=== PATIENT | female | born 1965 | race Two or more races ===

== ENCOUNTER 2017-04-03 17:15 | Observation (INO) | payer BC ==
--- NOTE | ~2017-04-03 | HP ---
History And Physical [facility] [address] [place]. [address] NAME: MOHSEN KELLY : [birth year] STATUS : ADM Ren PAT#: [id number] AGE: 52 ADM/REG DATE : 04/03/17 MR#: [id number] REPORT SERV DATE: 04/04/17 DICTATED BY: APOLINAR PIZARRO DATE: 04/04/17 REPORT STATUS : Draft TRANSCRIBED BY: MODL DATE: 04/04/17 DATE OF ADMISSION: 04/03/2017 CHIEF COMPLAINT: Abdominal pain, nausea, vomiting, and dark black stools. HISTORY OF PRESENT ILLNESS: This is a 52-year-old female with a history of colon cancer status post resection, hypertension, presents to the emergency room at [facility] with the above-mentioned complaint. History is obtained from the patient, and reviewing data available on the [employer] system. According to available data, Mrs. Kelly was in her usual state of health until yesterday in the evening when she started experiencing pain in her right lower quadrant and left lower quadrant. She says this was more in the right lower quadrant and sharp in nature. It appeared to be colicky as well. She was in quite a bit of discomfort and then she started having loose bowel movements. She says initially it was formed stools then it became very watery. She said the color was quite dark. She thought there was blood in it, but was not sure. She also had one or two episodes of vomiting which she says was just food that she ate and green by bilious material. She hoped the pain would go away, rested at night, but had a very uncomfortable night because of the pain. This morning when the pain continued in her abdomen, she continued to have nausea and vomiting, and she finally decided to come to the emergency room to be evaluated. In the emergency room, initial workup including CT scan of the abdomen and pelvis showed no acute problem, she did however have acute kidney injury and hypokalemia. She also had nausea and vomiting requiring intravenous administration of Phenergan and Zofran. When she initially presented to the emergency room, her blood pressure was 187/102, but subsequently came down to 138/93 and then 131/61. Hospitalist Service is asked to admit her for further evaluation and treatment. At the time of my evaluation, Ms Kelly denied any chest pain or palpitation. She had no orthopnea. She did not complain of any recent cough, hemoptysis, night sweats, or weight loss. She has not had any recent falls or loss of consciousness. She did have some chills, but no temperature. As mentioned above she did have nausea, vomiting, and diarrhea. No other history of recent travel or exposures. PAST MEDICAL HISTORY: Significant for history of colon cancer status post resection by Dr. Hua, and history of hypertension. SOCIAL HISTORY: She does not smoke, drink, or use recreational drugs. 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 FAMILY HISTORY: Noncontributory. MEDICATIONS: Her medications at home were reviewed by me in the chart today and reordered by me. History And Physical [address] [place]. [address] NAME: MOHSEN KELLY : [birth year] STATUS : ADM Ren PAT#: [id number] AGE: 52 ADM/REG DATE : 04/03/17 MR#: [id number] REPORT SERV DATE: 04/04/17 DICTATED BY: APOLINAR PIZARRO DATE: 04/04/17 REPORT STATUS : Draft TRANSCRIBED BY: JALEN DATE: 04/04/17 REVIEW OF SYSTEMS: As in history of present illness. All other systems were reviewed in detail and are quite unremarkable. PHYSICAL EXAMINATION: GENERAL: This is a pleasant 52-year-old, not in any acute distress. HEENT: Her head is atraumatic and normocephalic. She is alert, awake, oriented to time, place, and person. Her pupils are equal, reacting to light and accommodating. External ocular muscles are intact. Membranes are moist and pink. Sclerae are nonicteric. NECK: Supple with no jugular venous distention, lymphadenopathy, or thyromegaly. LUNGS: Clear to auscultation with no wheezes, rubs, or crackles. HEART: Heart sounds were regular with no murmurs, rubs, or gallops. ABDOMEN: Soft, but tender to palpation almost diffusely in all quadrants. There is no rebound tenderness, guarding, or rigidity. EXTREMITIES: No cyanosis, clubbing, or edema. NEUROLOGIC: Grossly intact. No focal sensory or motor deficits. Higher functions appeared intact. Gait was normal. VITAL SIGNS: Her temperature was 98.9, pulse 108, respirations 14 a minute, blood pressure was 138/93, and oxygen saturations were 98% breathing room air. LABORATORY DATA: Reviewed on the [employer] system showed a sodium of 142, potassium 3.1, chloride 104, CO2 of 28, BUN was 17 with a creatinine of 1.43, and glucose was 183. Her alkaline phosphatase was 106. ALT and AST were within normal limits. Lipase was 394. CBC showed a white blood cell count of 10,000. Normal hemoglobin, hematocrit, and platelet count. Urinalysis was not done today. Films of the CT scan of the abdomen and pelvis were reviewed by me on the PACS today and interpreted by me. Per my interpretation and reviewing the Radiology report, there is no acute intraabdominal or pelvic pathology. There is prior right colectomy seen. A 12-lead EKG done in the emergency room was reviewed and interpreted by me. There is normal sinus rhythm at a rate of 83 per minute. IMPRESSION: 1. Abdominal pain. 2. Nausea and vomiting. 3. Acute kidney injury. 4. Hypokalemia. 5. History of colon cancer. 6. Hypertension. PLAN: We will admit Mrs. Kelly to the Hospitalist Service with defensive monitoring for a 24 hour observation. We will keep her n.p.o., provide intravenous Zofran and Phenergan as antiemetics on an as-needed basis. We will start her on IV fluids volume resuscitation History And Physical [address] [address] NAME: MOHSEN KELLY : [birth year] STATUS : ADM Ren PAT#: [id number] AGE: 52 ADM/REG DATE : 04/03/17 MR#: [id number] REPORT SERV DATE: 04/04/17 DICTATED BY: APOLINAR PIZARRO DATE: 04/04/17 REPORT STATUS : Draft TRANSCRIBED BY: MODL DATE: 04/04/17 along with replacement of potassium. We will hold her HALEY inhibitors and diuretics at this time. We will go ahead and consult Dr. Phyllis Connolly to see her in the morning, and as mentioned she will be n.p.o. Her blood pressure has come down significantly since her initial arrival. We will continue her regular medications and even hydralazine intravenously on an as needed basis. She will be placed on SCDs for DVT prophylaxis while here and proton pump inhibitors. We will hold her aspirin for tonight. I have discussed the above plans with the patient. Her questions were answered and she is agreeable to the above recommendations. Please see today's orders for details. /JALEN Apolinar Pizarro M.D. / [phone] CC: Vera Bennett M.D.
--- NOTE | ~2017-04-03 | DS ---
Discharge Summary [facility] [address] [place]. [address] NAME: MOHSEN KELLY : 69 STATUS : ADM Ren PAT#: [id number] AGE: 52 ADM/REG DATE : 04/03/17 MR#: [id number] REPORT SERV DATE: 04/04/17 DICTATED BY: FAUSTINO JAIN DATE: 04/04/17 REPORT STATUS : Draft TRANSCRIBED BY: MODL DATE: 04/04/17 ADMISSION DATE: 04/03/2017 DISCHARGE DATE: 04/04/2017 DIAGNOSES ON ADMISSION: 1. Abdominal pain. 2. Nausea and vomiting. 3. Dark black stool. 4. Acute kidney injury secondary to dehydration. 5. Hypertension. 6. Hypokalemia. 7. History of colon cancer. DIAGNOSES ON DISCHARGE: 1. Abdominal pain, nausea, and vomiting, resolved, tolerates food. 2. Acute kidney injury, resolved with IV fluid hydration. 3. Hypokalemia, resolved with replacement. 4. Hypertension, controlled. 5. History of colon cancer with history of surgeries prior for colon cancer. CONSULTANTS: Dr. Darin Connolly, supervisor baking. PROCEDURES DONE: Colonoscopy done today on 04/04/2017 showed patent end-to-end colocolonic anastomosis, known bleeding internal hemorrhoids. Upper endoscopy showed normal exam in duodenum, gastritis, and grade A reflux esophagitis. HISTORY OF PRESENT ILLNESS: Briefly, this is a very pleasant 52-year-old female who was admitted by my colleague, Dr. Goodwin on 04/02/2017 with complaints of abdominal pain, nausea, vomiting, and dark black stools. She was complaining of lower abdominal pain as well as she had hypokalemia from nausea and vomiting and diarrhea on admission. The CT of the abdomen and pelvis without contrast, which was done on 04/03/2017 showed prior colon surgery sutures intact in the right upper quadrant, fatty liver changes with geographical replacement. The patient was started on IV fluid hydration. Her creatinine on admission was abnormal, it was 1.4. She was also started on potassium replacement. The patient's creatinine this morning improved to 1.16, potassium level was 4.5. GI, Dr. Connolly was consulted. He took patient to endoscopy, which showed patent anastomosis. No evidence of any bleeding. Dr. Connolly recommended the patient to be discharged today if she tolerates food and doing better. The patient is doing better. She said that she does not have nausea, vomiting. No diarrhea. She is able to tolerate food. I offered her to stay one more day, but she said that she is doing well, and she will go home, if anything needed, she may come back. Her potassium level today was 4.5. She never had hypokalemia before, so the hypokalemia happened because of dehydration, diarrhea, nausea, and vomiting. Since her symptoms have resolved, we do not expect her to have hypokalemia as well as creatinine normalized, it was 1.16. The patient was recommended to drink fluid, to be very well hydrated, and also she was recommended to check her basic metabolic panel on Saturday, 04/08, per Dr. Barnett. Discharge Summary [address] [address] NAME: MOHSEN KELLY : 69 STATUS : ADM Ren PAT#: [id number] AGE: 52 ADM/REG DATE : 04/03/17 MR#: [id number] REPORT SERV DATE: 04/04/17 DICTATED BY: FAUSTINO JAIN DATE: 04/04/17 REPORT STATUS : Draft TRANSCRIBED BY: JALEN DATE: 04/04/17 DISCHARGE MEDICATIONS: Patient to continue her diltiazem at a dose of 240 mg a day, Nexium 40 mg a day, niacin 500 mg p.o. daily as needed. Aspirin 81 mg daily to restart in three to four days, she takes it p.r.n. Losartan with hydrochlorothiazide 100/25, she was told to restart tomorrow. The patient was told to hold losartan with hydrochlorothiazide if she develops nausea, vomiting, or dehydration, but to continue it if she will not have any symptoms. She takes half pill a day. Vitamin D 1000 units daily, magnesium oxide 400 mg daily, vitamin E 400 units daily, omega-3 fatty acids 1000 daily p.r.n., hydralazine was prescribed at a dose of 10 mg p.o. b.i.d. as needed for systolic blood pressure more than 140. FOLLOWUP: The patient to follow up with Dr. Barnett on Saturday, 04/08, to check her BMP. Follow up with [facility] in two weeks. I spent 45 minutes on discharge. DICTATED BY: Cat Bhardwaj/JALEN Faustino Jain M.D. / [id number] CC: Cat Bhardwaj M.D. Vijaykurmar Patel, M.D.
--- NOTE | ~2017-04-03 | EGD ---
EGD REPORT [facility] [address] [place] [address] NAME: TRACY KELLY : 69 STATUS : ADM Ren PAT#: [id number] AGE: 52 ADM/REG DATE : 04/03/17 MR#: [id number] REPORT SERV DATE: 04/04/17 DICTATED BY: CALDERON TSAI DATE: 04/04/17 REPORT STATUS : Draft [facility]ANS[facility]: [facility] DATE: 04/04/17 Endoscopy Center Patient Name: Tracy Kelly Date of : 1965 Attending MD: MAITE TSAI MD Procedure Date No Time: 04/04/2017 Procedure: Colonoscopy Indications: Generalized abdominal pain Referring MD: KATE GATICA MD Medicines: See the Anesthesia note for documentation of the administered medications Complications: No immediate complications. Estimated blood loss: None. Procedure: Pre-Anesthesia Assessment: - ASA Grade Assessment: II - A patient with mild systemic disease. - Prior to the procedure, a History and Physical was performed, and patient medications and allergies were reviewed. The patient's tolerance of previous anesthesia was also reviewed. The risks and benefits of the procedure and the sedation options and risks were discussed with the patient. All questions were answered, and informed consent was obtained. Prior Anticoagulants: The patient has taken no previous anticoagulant or antiplatelet agents. After reviewing the risks and benefits, the patient was deemed in satisfactory condition to undergo the procedure. After I obtained informed consent, the scope was passed under direct vision. Throughout the procedure, the patient's blood pressure, pulse, and oxygen saturations were monitored continuously. The PCF [id number] was introduced through the anus and advanced to the cecum, identified by appendiceal orifice and ileocecal valve. The ileocecal valve, appendiceal orifice and rectum were photographed. The entire colon was examined. The colonoscopy was performed without difficulty. The patient tolerated the procedure well. The quality of the bowel preparation was adequate. Findings: The perianal and digital rectal examinations were normal. There was evidence of a prior end-to-end colo-colonic anastomosis in the ascending colon. This was patent. This was characterized by healthy appearing mucosa. This was traversed. Non-bleeding internal hemorrhoids were found during retroflexion and were Grade I (internal hemorrhoids that do not prolapse). EGD REPORT [facility] [id number] [place]. [address] NAME: TRACY KELLY : [birth year] STATUS : ADM Ren PAT#: [id number] AGE: 52 ADM/REG DATE : 04/03/17 MR#: [id number] REPORT SERV DATE: 04/04/17 DICTATED BY: CALDERON TSAI DATE: 04/04/17 REPORT STATUS : Draft TRANSCRIBED BY: [facility] DATE: 04/04/17 No other significant abnormalities were identified in a careful examination of the remainder of the colon. Impression: - Patent end-to-end colo-colonic anastomosis. - Non-bleeding internal hemorrhoids. Recommendation: - Patient has a contact number available for emergencies. The signs and symptoms of potential delayed complications were discussed with the patient. Return to normal activities tomorrow. Written discharge instructions were provided to the patient. - Regular diet. - Return patient to hospital [facility] for ongoing care. - Continue present medications. Procedure Code(s): --- Professional --- 49919, Colonoscopy, flexible, proximal to splenic flexure; diagnostic, with or without collection of specimen(s) by brushing or washing, with or without colon decompression (separate procedure) Diagnosis Code(s): --- Professional --- Z98.0, Intestinal bypass and anastomosis status K64.0, First degree hemorrhoids R10.84, Generalized abdominal pain CPT copyright 2013 [employer]. All rights reserved. The codes documented in this report are preliminary and upon flame cutting machine operator review may be revised to meet current compliance requirements. MAITE TSAI MD 04/04/2017 2:13 PM This report has been signed electronically. Number of Addenda: 0 Note Initiated On: 04/04/2017 1:40 PM Scope Withdrawal Time 0 hours 4 minutes 33 seconds [id number] [id number]
--- NOTE | ~2017-04-03 | CN ---
Consultation Report [facility] [address] [place]. [address] NAME: MOHSEN KELLY : 69 STATUS : ADM Ren PAT#: [id number] AGE: 52 ADM/REG DATE : 04/03/17 MR#: [id number] REPORT SERV DATE: 04/04/17 DICTATED BY: CALDERON CONNOLLY DATE: 04/04/17 REPORT STATUS : Draft TRANSCRIBED BY: MODL DATE: 04/04/17 GI CONSULTATION DATE OF CONSULTATION: 04/04/2017 REASON FOR CONSULTATION: Nausea, vomiting, abdominal pain, and hypokalemia. 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 She comes in this time with complaints of nausea, vomiting, abdominal pain, basically pain localized to the lower abdomen. She says the pain was colicky in nature. She feels that there may have been some blood though she is not sure. She was vomiting bilious material this morning, she is feeling a whole lot better. A CT scan was done, the report of which is pending, but according to the admitting physician, it showed no acute problems. This morning she is feeling a whole lot better. MEDICAL HISTORY: Colon cancer with multiple surgeries and history of hypertension. PAST SURGICAL HISTORY: Multiple surgeries for colon cancer. HOME MEDICATIONS: Aspirin, vitamins, Cardizem, Nexium, Hyzaar, magnesium oxide, Niaspan, fish oil, and vitamin E. ALLERGIES: NONE. HABITS: Does not smoke or drink. FAMILY HISTORY: Noncontributory. PHYSICAL EXAMINATION: GENERAL: She is a fully alert and oriented lady, presently feeling a whole lot better. VITAL SIGNS: Stable. She is afebrile. ABDOMEN: There is some tenderness in the left lower quadrant. No mass, guarding, rigidity, or rebound. Liver and spleen are not palpable. Clinically no ascites. LABORATORY DATA: Her potassium has been corrected and it is 4.5 this morning. CBC is normal. IMPRESSION: 1. Nausea, vomiting, and abdominal pain. Feeling better now. Consultation Report [facility] [address] [facility] [place] [address] NAME: MOHSEN KELLY : [birth year] STATUS : ADM Ren PAT#: [id number] AGE: 52 ADM/REG DATE : 04/03/17 MR#: [id number] REPORT SERV DATE: 04/04/17 DICTATED BY: CALDERON CONNOLLY DATE: 04/04/17 REPORT STATUS : Draft TRANSCRIBED BY: JALEN DATE: 04/04/17 2. Acid reflux. 3. History of colon cancer. Everything was discussed with the patient. She was to go ahead and proceed with an EGD and colonoscopy. She thinks she is feeling better. She will be able to tolerate the colloid and wants to go ahead and drink the colloid. We will plan panendoscopy later this afternoon. ERROL/JALEN Phyllis Connolly M.D. / [id number] CC: Cat Bhardwaj III, M.D.
--- NOTE | ~2017-04-03 | EGD ---
EGD REPORT [facility] [address] [place] [address] NAME: TRACY KELLY : 69 STATUS : ADM Ren PAT#: [id number] AGE: 52 ADM/REG DATE : 04/03/17 MR#: [id number] REPORT SERV DATE: 04/04/17 DICTATED BY: CALDERON TSAI DATE: 04/04/17 REPORT STATUS : Draft [facility]: [facility] DATE: 04/04/17 Endoscopy Center Patient Name: Tracy Kelly Date of : 1965 Attending MD: MAITE TSAI MD Procedure Date No Time: 04/04/2017 Procedure: Upper GI endoscopy Indications: Generalized abdominal pain, Nausea with vomiting Medicines: See the Anesthesia note for documentation of the administered medications Complications: No immediate complications. Estimated blood loss: Minimal. Procedure: Pre-Anesthesia Assessment: - ASA Grade Assessment: II - A patient with mild systemic disease. - Prior to the procedure, a History and Physical was performed, and patient medications and allergies were reviewed. The patient's tolerance of previous anesthesia was also reviewed. The risks and benefits of the procedure and the sedation options and risks were discussed with the patient. All questions were answered, and informed consent was obtained. Prior Anticoagulants: The patient has taken no previous anticoagulant or antiplatelet agents. After reviewing the risks and benefits, the patient was deemed in satisfactory condition to undergo the procedure. After obtaining informed consent, the endoscope was passed under direct vision. Throughout the procedure, the patient's blood pressure, pulse, and oxygen saturations were monitored continuously. The GIF [id number] [id number] was introduced through the mouth, and advanced to the second part of duodenum. The upper GI endoscopy was accomplished without difficulty. The patient tolerated the procedure well. Findings: The examined duodenum was normal. Biopsies were taken with a cold forceps for histology. Diffuse moderate inflammation characterized by congestion (edema) and erythema was found in the gastric antrum. Biopsies were taken with a cold forceps for histology. The cardia and gastric fundus were normal on retroflexion. LA Grade A (one or more mucosal breaks less than 5 mm, not extending between tops of 2 mucosal folds) esophagitis with no bleeding was found at the gastroesophageal junction. Biopsies were taken with a cold EGD REPORT [address] [address] NAME: TRACY KELLY : [birth year] STATUS : ADM Ren PAT#: [id number] AGE: 52 ADM/REG DATE : 04/03/17 MR#: [id number] REPORT SERV DATE: 04/04/17 DICTATED BY: CALDERON TSAI DATE: 04/04/17 REPORT STATUS : Draft [facility]ANS[facility]IBED BY: [facility] DATE: 04/04/17 forceps for histology. No other significant abnormalities were identified in a careful examination of the esophagus. Impression: - Normal examined duodenum. Biopsied. - Gastritis. Biopsied. - LA Grade A reflux esophagitis. Biopsied. Recommendation: - Patient has a contact number available for emergencies. The signs and symptoms of potential delayed complications were discussed with the patient. Return to normal activities tomorrow. Written discharge instructions were provided to the patient. - Regular diet. - Continue present medications. - Await pathology results. - Return patient to hospital [facility] for ongoing care. Procedure Code(s): --- Professional --- 73824, Esophagogastroduodenoscopy, flexible, transoral; with biopsy, single or multiple Diagnosis Code(s): --- Professional --- K29.70, Gastritis, unspecified, without bleeding K21.0, Gastro-esophageal reflux disease with esophagitis R10.84, Generalized abdominal pain R11.2, Nausea with vomiting, unspecified CPT copyright 2013 [employer]. All rights reserved. The codes documented in this report are preliminary and upon last model maker review may be revised to meet current compliance requirements. MAITE TSAI MD 04/04/2017 1:57 PM This report has been signed electronically. Number of Addenda: 0 Note Initiated On: 04/04/2017 1:42 PM Scope Withdrawal Time 0 hours 0 minutes 0 seconds [address] [id number]
[~2017-04-03 17:15] MED LIST: ALEVE220 MG; ALEVE220 MG PO; ASAB PO; CARDCD240 PO; CEFADROXIL1 GM PO; FISH-EPA1000 MG PO; HYZAAR 50/12.51 TAB PO; HYZAAR1 TAB PO; LEVBID PO; LOP100 PO; LOP50 PO; LORTAB 5 PO; NEUR100 PO; NEXIUM40 PO; NIACIN100 PO; PRAV10 PO; PRILO PO; SEV VITAMINS PO; ULTRAM50 PO; VIT D 3; VIT E; VIVELLE0.1 MG TD; ZANAFLEX 4 MG TA4 MG; [UNRECOGNIZED DRUG - OTHER]
[2017-04-03 17:42] LABS: BASOPHILS 0.4 %; BASOPHILS ABSOLUTE 0.04 10/3/uL (0.0-0.16); EOSINOPHILS 1.6 %; EOSINOPHILS ABSOLUTE 0.16 10/3/uL (0.0-0.53); ER CBC TAT 0 Hrs 09 Mins; HEMATOCRIT 43.2 % (36.0-48.0); HEMOGLOBIN 14.7 g/dL (12.0-16.0); IMMATURE GRANULOCYTES 0.2 %; IMMATURE GRANULOCYTES ABSOLUTE 0.02 10/3/uL (0.0-0.11); LYMPHOCYTES ABSOLUTE 3.04 10/3/uL (0.67-4.30); MANUAL DIFF NO %; MEAN CORPUSCULAR HEMOGLOB 28.9 pg (26.0-34.0); MEAN CORPUSCULAR VOLUME 84.9 fL (80-100); MONOCYTES 4.6 %; MONOCYTES ABSOLUTE 0.47 10/3/uL (0.21-1.20); NEUTROPHILS 63.2 %; NEUTROPHILS ABSOLUTE 6.41 10/3/uL (2.02-8.40); PLATELET COUNT 284 10/3/uL (150-400); RBC DISTRIBUTION WIDTH 12.3 % (12.0-16.0); RED CELL COUNT 5.09 10/6/uL (4.0-5.6); WHITE BLOOD CELLS 10.1 10/3/uL (4.5-10.5)
[2017-04-03 17:48] LABS: INTERNATIONAL NORMAL RATI 0.9 UNITS (-); PARTIAL THROMBO TIME 23.5 SEC (22.5-37.2); PROTIME (NOT ORD) 12.5 SEC (12.0-14.5)
[2017-04-03 17:58] LABS: ALBUMIN 4.1 G/DL (3.5-5.0); ALKALINE PHOSPHATASE 106 U/L (45-117); BUN (BLOOD UREA NITROGEN) 17 MG/DL (6-23); CALCIUM, SERUM 9.6 MG/DL (8.5-10.4); CHLORIDE, SERUM 104 MMOL/L (96-112); CO2 (CARBON DIOXIDE) 28 MMOL/L (24-34); CREATININE 1.43 MG/DL (0.55-1.02); GFR AFRICAN AMERICAN 49 ML/MIN (>=60); GFR NON AFRICAN AMERICAN 43 ML/MIN (>=60); GLUCOSE, SERUM 183 MG/DL (60-99); POTASSIUM, SERUM 3.1 MMOL/L (3.5-5.3); SGOT(AST) 17 U/L (5-40); SGPT(ALT) 22 U/L (5-65); SODIUM, SERUM 142 MMOL/L (135-148); TOTAL BILIRUBIN 0.7 MG/DL (0-1.2); TOTAL PROTEIN 8.1 G/DL (6.0-8.5)
[2017-04-03] MEDS ORDERED: NEXIUM40 PO (23:07)
[2017-04-03] MEDS ORDERED: NIASPAN500 PO (23:07)
[2017-04-03] MEDS ORDERED: CARDCD240 PO (23:07)
[2017-04-03] MEDS ORDERED: ASAB PO (23:08)
[2017-04-03] MEDS ORDERED: HYZAAR 100/25 T1 TAB PO (23:08)
[2017-04-03] MEDS ORDERED: MAGOX4 PO (23:09)
[2017-04-03] MEDS ORDERED: VITE PO (23:09)
[2017-04-03] MEDS ORDERED: FISH-EPA1000 MG PO (23:09)
[2017-04-03] MEDS ORDERED: VITAMIN D31000 UNIT PO (23:09)
[2017-04-04 04:31] LABS: BASOPHILS 0.3 %; BASOPHILS ABSOLUTE 0.03 10/3/uL (0.0-0.16); EOSINOPHILS 2.8 %; EOSINOPHILS ABSOLUTE 0.26 10/3/uL (0.0-0.53); HEMOGLOBIN 12.6 g/dL (12.0-16.0); IMMATURE GRANULOCYTES 0.2 %; IMMATURE GRANULOCYTES ABSOLUTE 0.02 10/3/uL (0.0-0.11); LYMPHOCYTES 37.7 %; LYMPHOCYTES ABSOLUTE 3.54 10/3/uL (0.67-4.30); MEAN CORPUS HGB CONC 33.7 g/dL (32.0-36.0); MEAN CORPUSCULAR HEMOGLOB 28.7 pg (26.0-34.0); MEAN CORPUSCULAR VOLUME 85.2 fL (80-100); MEAN PLATELET VOLUME 8.8 fL (9.2-13.0); MONOCYTES ABSOLUTE 0.75 10/3/uL (0.21-1.20); NEUTROPHILS ABSOLUTE 4.79 10/3/uL (2.02-8.40); PLATELET COUNT 258 10/3/uL (150-400); RBC DISTRIBUTION WIDTH 12.2 % (12.0-16.0); RED CELL COUNT 4.39 10/6/uL (4.0-5.6); WHITE BLOOD CELLS 9.4 10/3/uL (4.5-10.5)
[2017-04-04 04:33] LABS: HEMATOCRIT 37.4 % (36.0-48.0); MANUAL DIFF NO %
[2017-04-04 04:47] LABS: CALCIUM, SERUM 8.7 MG/DL (8.5-10.4); CHLORIDE, SERUM 112 MMOL/L (96-112); CO2 (CARBON DIOXIDE) 26 MMOL/L (24-34); CREATININE 1.16 MG/DL (0.55-1.02); GFR AFRICAN AMERICAN 64 ML/MIN (>=60); GFR NON AFRICAN AMERICAN 55 ML/MIN (>=60); PHOSPHORUS, SERUM 3.5 MG/DL (2.5-4.5); SODIUM, SERUM 143 MMOL/L (135-148)
[2017-04-04 04:48] LABS: BUN (BLOOD UREA NITROGEN) 13 MG/DL (6-23); GLUCOSE, SERUM 134 MG/DL (60-99); POTASSIUM, SERUM 4.5 MMOL/L (3.5-5.3)
[2017-04-04] MEDS ORDERED: APRES10B PO (17:30)
== END 2017-04-04 17:44 | disposition home or self-care (01) ==
LOC: ER 17:15 → CDU1 23:54
PROVIDERS: Emergency Medicine; Hospitalist; Internal Medicine Gastroenterology
PROC: 0DB58ZX Excision of Esophagus, Via Natural or Artificial Opening Endoscopic, Diagnostic (ICD-10-PCS; 2017-04-04)
PROC: 0DJD8ZZ Inspection of Lower Intestinal Tract, Via Natural or Artificial Opening Endoscopic (ICD-10-PCS; 2017-04-04)
PROC: 0DB98ZX Excision of Duodenum, Via Natural or Artificial Opening Endoscopic, Diagnostic (ICD-10-PCS; principal; 2017-04-04 13:49)
PROC: 0DB68ZX Excision of Stomach, Via Natural or Artificial Opening Endoscopic, Diagnostic (ICD-10-PCS; 2017-04-04 13:49)
DX: K21.0 Gastro-esophageal reflux disease with esophagitis (principal); I10 Essential (primary) hypertension; N17.9 Acute kidney failure, unspecified; E87.6 Hypokalemia; E78.00 Pure hypercholesterolemia, unspecified; E86.0 Dehydration; K64.0 First degree hemorrhoids; K29.70 Gastritis, unspecified, without bleeding; K57.30 Diverticulosis of large intestine without perforation or abscess without bleeding; Z98.0 Intestinal bypass and anastomosis status; Z85.038 Personal history of other malignant neoplasm of large intestine; Z88.8 Allergy status to other drugs, medicaments and biological substances; Z88.5 Allergy status to narcotic agent; Z90.710 Acquired absence of both cervix and uterus
CPT/HCPCS: 36415; 74176; 80048; 80053; 83605; 83690; 83735; 84100; 85025; 85610; 85730; 86850; 86900; 86901; 88305; 93005; 96374; 96375; 96376; 99285; A9270-GY; C9113; G0378; J1170; J2405